=== PATIENT | male | born 1980 ===

== ENCOUNTER → 2018-10-01 14:56 | Outpatient (REF) | payer OTHER, SELFPAY | LOC: LAB 14:56 | PROVIDERS: Visit Provider Physician Assistant | DX: L71.8 Other rosacea (principal); L21.8 Other seborrheic dermatitis; B07.8 Other viral warts; L20.84 Intrinsic (allergic) eczema; L85.3 Xerosis cutis; L56.4 Polymorphous light eruption; L01.01 Non-bullous impetigo; R23.8 Other skin changes; Z78.9 Other specified health status | CPT/HCPCS: 87070; 87205 ==